=== PATIENT | male | born 1935 | race Caucasian/White ===

== ENCOUNTER 2016-12-12 10:09 | Emergency (ER) | payer OTHER ==
[~2016-12-12] VITALS: Ht 167.6 cm; Wt 69.0 kg
--- NOTE | ~2016-12-12 | EKG ---
[address] [address] ELECTROCARDIOGRAM REPORT Name: ANNIE CHAVES [id number] Admission: 12/12/16 Attend Phys: Discharge: 12/12/16 Date of : 31 Report #: [id number] THIS REPORT FOR: //name// [facility] ED Test Date: 2016-12-12 Test Time: 10:23:25 Pat Name: ANNIE CHAVES Department: Room: Gender: Home Health Outreach Coordinator: DIEUDONNE : 1935 Requested By: Gemini Lama Order Number: [id number] MD: Shimon Harris Measurements Intervals [place] Rate: 78 P: 66 NC: 148 QRS: 46 QRSD: 84 T: 58 QT: 363 QTc: 414 Interpretive Statements Sinus rhythm Normal tracing No previous ECG available for comparison Electronically Signed On 12-12-2016 13:38:57 CDT by Shimon Harris [email or web address] <ELECTRONICALLY SIGNED> By: Shimon Harris MD, [facility] 12/12/16 1338 1023 1023 Shimon Harris MD, FACC /EPI
[2016-12-12] MEDS ORDERED: ALLOPURINOL 30300 M2 PO (10:28)
[2016-12-12] MEDS ORDERED: ASPIR 8181 MG PO (10:29)
[2016-12-12] MEDS ORDERED: XANAX 0.5 MG0.5 MG PO (10:29)
[2016-12-12] MEDS ORDERED: ATENOLOL 25 MG25 M1 PO (10:30)
[2016-12-12] MEDS ORDERED: LIPITOR 20 MG T20 M1 PO (10:30)
[2016-12-12] MEDS ORDERED: LOTRISONE CREAM15 GM TOP (10:32)
[2016-12-12] MEDS ORDERED: BENTYL 10 MG CA10 M1 PO (10:33)
[2016-12-12] MEDS ORDERED: GEMFIBROZIL 60600 M1 PO (10:33)
[2016-12-12 10:34] LABS: ABSOLUTE NEUTROPHILS 13.2 thou/uL (1.4-8.2); BASOPHILS 0.2 % (0.0-2.0); EOSINOPHILS 0.2 % (0.0-3.0); HEMATOCRIT 38.7 % (42.0-52.0); HEMOGLOBIN 13.2 gm/dL (14.0-18.0); LYMPHOCYTES 6.9 % (24.0-44.0); MCH 32.1 pg (26.0-34.0); MCHC 34.1 g/dL (28.0-37.0); MCV 94.3 fL (80.0-100.0); MONOCYTES 5.4 % (1.0-8.0); PLATELET COUNT 202 thou/uL (150-400); POLYS 87.3 % (36.0-66.0); RDW 12.8 % (10.5-14.5); WBC 15.1 thou/uL (4.0-11.0)
[2016-12-12] MEDS ORDERED: GLUCOTROL5 MG PO (10:34)
[2016-12-12] MEDS ORDERED: CLARITIN10 MG PO (10:36)
[2016-12-12] MEDS ORDERED: ATROVENT HFA14 GM NASAL (10:36)
[2016-12-12] MEDS ORDERED: METFORMIN HCL500 MG PO (10:37)
[2016-12-12] MEDS ORDERED: LOPRESSOR50 PO (10:37)
[2016-12-12] MEDS ORDERED: OMEGA 3 1,0001 EACH PO (10:38)
[2016-12-12] MEDS ORDERED: OMEPRAZOLE 20 M20 M1 PO (10:38)
[2016-12-12] MEDS ORDERED: TARKA 4-240 MG1 EACH PO (10:39)
[2016-12-12] MEDS ORDERED: TRIAMCINOLONE A80 G2 TOP (10:40)
[2016-12-12 10:41] LABS: ANION GAP 11 mmol/L (7-16); BUN 13 mg/dL (7-18); CALCIUM 8.8 mg/dL (8.5-10.1); CHLORIDE 98 mmol/L (98-107); CO2 25 mmol/L (21-32); CREATININE 1.2 mg/dL (0.7-1.3); GLUCOSE 214 mg/dL (74-106); POTASSIUM 3.7 mmol/L (3.5-5.1); SODIUM 134 mmol/L (136-145)
[2016-12-12 10:48] LABS: MANUAL DIFF NO
[2016-12-12 10:50] LABS: ALBUMIN 4.2 g/dL (3.4-5.0); ALKALINE PHOSPHATASE 98 U/L (46-116); DIRECT BILIRUBIN 0.3 mg/dL (<0.1-0.3); SGOT 33 U/L (15-37); SGPT 31 U/L (30-65); TOTAL BILIRUBIN 0.7 mg/dL (<0.1-1.0); TOTAL PROTEIN 7.5 g/dL (6.4-8.2); TROPONIN-I < 0.04 ng/mL (<0.04-0.07)
[2016-12-12 11:16] LABS: URINE BILIRUBIN NEGATIVE (Negative); URINE BLOOD NEGATIVE (Negative); URINE COLOR YELLOW; URINE GLUCOSE-RANDOM* NEGATIVE (Negative); URINE KETONES NEGATIVE (Negative); URINE NITRITE NEGATIVE (Negative); URINE PROTEIN (DIPSTICK) 2+ (Negative); URINE UROBILINOGEN 0.2 E.U./dl (0.2-1.0)
[2016-12-12 12:10] LABS: BACTERIA 1-9 Few /HPF (None Seen); CRYSTALS None Seen /LPF (None Seen); HYALINE CASTS 4-10 Moderate /LPF (None Seen); SQUAMOUS 0-3 Few /LPF (0-3); URINE RBC None Seen /HPF (0-2); URINE WBC 0-5 Rare /HPF (0-5)
[2016-12-12] MEDS ORDERED: NORCO 5-325 TA1 EACH PO (12:28)
[2016-12-12] MEDS ORDERED: ZOFRAN ODT4 MG PO (12:28)
[2016-12-12 12:39] VITALS: BP 107/49
== END 2016-12-12 12:49 | disposition home or self-care (01) ==
LOC: ER 10:09
PROVIDERS: Emergency Medicine
DX: K56.69 Other intestinal obstruction (principal); D72.829 Elevated white blood cell count, unspecified; R74.0 Nonspecific elevation of levels of transaminase and lactic acid dehydrogenase [LDH]; K21.9 Gastro-esophageal reflux disease without esophagitis; Z90.49 Acquired absence of other specified parts of digestive tract; Z87.891 Personal history of nicotine dependence

== ENCOUNTER → 2017-07-05 | Outpatient (CLI) | payer OTHER ==
[~2017-07-05] VITALS: Ht 162.6 cm; Wt 68.0 kg
[~2017-07-05] MED LIST: ALLOPURINOL 30300 M2 PO; ASPIR 8181 MG PO; ATENOLOL 25 MG25 M1 PO; ATROVENT HFA14 GM NASAL; BENTYL 10 MG CA10 M1 PO; CLARITIN10 MG PO; COQ-10100 MG PO; GEMFIBROZIL 60600 M1 PO; GLUCOTROL5 MG PO; LIPITOR 20 MG T20 M1 PO; LOPRESSOR50 PO; LOTRISONE CREAM15 GM TOP; METFORMIN HCL500 MG PO; NEPHROCAPS SOFT1 CAP PO; NORCO 5-325 TA1 EACH PO; OMEGA 3 1,0001 EACH PO; OMEPRAZOLE 20 M20 M1 PO; TARKA 4-240 MG1 EACH PO; TRIAMCINOLONE A80 G2 TOP; VITAMIN D1000 UNI1 PO; XANAX 0.5 MG0.5 MG PO; ZOFRAN ODT4 MG PO
--- NOTE | ~2017-07-05 | CATHLAB ---
[facility] [place] [address] INVASIVE PROCEDURE REPORT Name: ANNIE CHAVES Room #: REG MATILDE Varner#: [id number] Admission: 07/05/17 Attend Phys: Marcelo Ewing, Discharge: Date of : 31 Date of Service: 07/15/17 0929 Report #: [id number] THIS REPORT FOR: //name// APPROVED REPORT Study performed: 07/05/2017 08:32:39 Patient Details Patient Status: Out-Patient Room #: The patient is a 81 year-old male Event Personnel Evan Mcgee RN, Jay Elias RN RN, Marcelo Ewing Survey Research Manager, Nicho Miller Partnoy, Nancy RTR, PROFESSOR OF HISTORY Monitor Procedures Performed Art Access - R femoral artery* 29378 Initial Mod Sed Same Phys/QHP Gr5y 329559 Left Heart Cath w/or w/o Coronaries 3323651 [facility] Aortogram Abdominal Peripheral Angio 321150 Hemostasis w/ Mynx Indication Positive stress test Procedure Narrative The Right Groin^ was infiltrated with 1% Lidocaine subcutaneous anesthesia. A PINNACLE 6FR Sheath #[id number] sheath was inserted into the RFA^. Coronary angiography was performed using coronary diagnostic catheters. The right coronary system was accessed and visualized with a JR4 catheter. The left coronary system was accessed and visualized with a JL4 catheter. The left ventricle was accessed and visualized with a Pigtail catheter. Left ventricular/Aortic Valve gradient assessed via catheter pullback. Left ventriculogram was performed in 30 degree projection. An aortogram of the abdominal aorta was performed. Pre-demployment femoral angiogram was performed . Closure device was deployed with a 6 Fr MYNXGRIP 6/7F #[id number]. The patient tolerated the procedure well and there were no complications associated with the procedure. There was no hematoma. Intraoperative Conscious Sedation Sedation start time: 08:59 Case end Time: 09:09 Fentanyl 50 mcg Versed 1.5 mg Fluoro Time: 1.55 minutes [facility] [address] [place] [address] INVASIVE PROCEDURE REPORT Name: ANNIE CHAVES [facility] Room #: [facility] Telly#: [id number] Admission: 07/05/17 Attend Phys: Marcelo Ewing, Discharge: Date of : 31 Date of Service: 07/15/17 0929 Report #: [id number] Dose: DAP 2061.70 cGycm2 231 mGy Contrast Type and Amount: Omnipaque 120 ml Hemodynamics The aortic pressure is 110/50 mmHg with a mean of 72 mmHg. The left ventricular pressure is 111/4 mmHg with a mean of mmHg. The left ventricular end diastolic pressure is 28 mmHg. 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 Indications plan: Continue aggressive risk factor modification no coronary intervention is indicated. We'll have abdominal ultrasound to evaluate for small aortic aneurysm. No lifting for 48 hours No line tub Jacuzzi or Ibarra for a week. Follow-up will be arranged. <ELECTRONICALLY SIGNED> By: Marcelo Ewing MD, FACC 07/15/17928 8 8 Marcelo Ewing MD, FACC /INF
--- NOTE | ~2017-07-05 | EKG ---
[place] [address] [address] [facility] [place] [address] ELECTROCARDIOGRAM REPORT Name: ROSY CHAVESPIEDAD MCLEOD Room #: REG [facility] [id number] Admission: 07/05/17 Attend Phys: Marcelo Ewing MD, Discharge: Date of : 31 Report #: [id number] THIS REPORT FOR: //name// [facility] Test Date: 2017-07-05 Test Time: 07:18:40 Pat Name: ANNIE CHAVES Department: Room: Gender: M Assistant Therapy Aide: : 1935 Requested By: Marcelo Ewing Order Number: [id number] MD: Shimon Harris Measurements Intervals [place] Rate: 70 P: 71 AR: 146 QRS: 51 QRSD: 87 T: 55 QT: 379 QTc: 409 Interpretive Statements Sinus rhythm Probable anteroseptal infarct, old Compared to ECG 12/12/2016 10:23:25 Septal Q waves are more prominent Electronically Signed On 07-05-2017 17:44:37 CDT by Shimon Harris [email or web address] <ELECTRONICALLY SIGNED> By: Shimon Harris MD, [facility] 07/05/17 1744 7 7 Shimon Harris MD, [facility] /EPI
[2017-07-05 07:05] VITALS: BP 124/60
[2017-07-05 07:48] LABS: HEMATOCRIT 32.3 % (42.0-52.0); HEMOGLOBIN 11.2 gm/dL (14.0-18.0); MCH 32.7 pg (26.0-34.0); MCHC 34.8 g/dL (28.0-37.0); RBC 3.43 mil/uL (4.50-6.00); RDW 12.8 % (10.5-14.5); WBC 4.2 thou/uL (4.0-11.0)
[2017-07-05 08:00] LABS: CALCIUM 8.8 mg/dL (8.5-10.1); POTASSIUM 3.6 mmol/L (3.5-5.1)
== END | disposition home or self-care (01) ==
LOC: CATH 06:38
PROVIDERS: Internal Medicine Cardiovascular Disease
DX: I25.10 Atherosclerotic heart disease of native coronary artery without angina pectoris (principal); I71.4 Abdominal aortic aneurysm, without rupture; I70.1 Atherosclerosis of renal artery; I10 Essential (primary) hypertension; E78.5 Hyperlipidemia, unspecified; E11.9 Type 2 diabetes mellitus without complications; K21.9 Gastro-esophageal reflux disease without esophagitis; Z90.49 Acquired absence of other specified parts of digestive tract; Z98.890 Other specified postprocedural states; Z87.891 Personal history of nicotine dependence; Z95.5 Presence of coronary angioplasty implant and graft; Z82.49 Family history of ischemic heart disease and other diseases of the circulatory system; Z79.899 Other long term (current) drug therapy; Z79.82 Long term (current) use of aspirin

== ENCOUNTER → 2019-04-16 | Outpatient (CLI) | payer OTHER ==
[~2019-04-16] MED LIST changes: +AMARYL2 M1 PO; +MONTELUKAST SODI4 M1 PO; +XARELTO20 MG PO
== END ==
LOC: SJCVCIMAG 12:47
DX: I82.431 Acute embolism and thrombosis of right popliteal vein (principal); I87.2 Venous insufficiency (chronic) (peripheral); M79.89 Other specified soft tissue disorders; M79.669 Pain in unspecified lower leg

== ENCOUNTER → 2019-05-07 | Outpatient (CLI) | payer OTHER ==
[~2019-05-07] VITALS: Ht 160 cm; Wt 68.0 kg
[2019-05-07 14:07] VITALS: BP 134/79
[2019-05-07 14:39] LABS: HEMATOCRIT 39.6 % (42.0-52.0); HEMOGLOBIN 12.9 gm/dL (14.0-18.0); MCH 31.4 pg (26.0-34.0); MCHC 32.6 g/dL (28.0-37.0); MCV 96.3 fL (80.0-100.0); RBC 4.11 mil/uL (4.50-6.00); RDW 14.2 % (10.5-14.5); WBC 4.1 thou/uL (4.0-11.0)
[2019-05-07 14:48] LABS: CALCIUM 8.5 mg/dL (8.5-10.1); POTASSIUM 3.9 mmol/L (3.5-5.1)
== END | disposition home or self-care (01) ==
LOC: CATH 13:27
PROVIDERS: Nuclear Medicine Nuclear Cardiology
DX: I87.1 Compression of vein (principal); I87.2 Venous insufficiency (chronic) (peripheral); I10 Essential (primary) hypertension; E11.9 Type 2 diabetes mellitus without complications; K21.9 Gastro-esophageal reflux disease without esophagitis; E78.5 Hyperlipidemia, unspecified; I25.10 Atherosclerotic heart disease of native coronary artery without angina pectoris; I73.9 Peripheral vascular disease, unspecified; I48.91 Unspecified atrial fibrillation; Z98.890 Other specified postprocedural states; Z79.899 Other long term (current) drug therapy; Z79.01 Long term (current) use of anticoagulants; Z87.891 Personal history of nicotine dependence; Z90.49 Acquired absence of other specified parts of digestive tract; Z88.8 Allergy status to other drugs, medicaments and biological substances

== ENCOUNTER → 2019-05-16 | Outpatient (CLI) | payer OTHER | LOC: HYPER 08:36 | DX: E11.628 Type 2 diabetes mellitus with other skin complications (principal); R60.9 Edema, unspecified; G89.29 Other chronic pain; M79.89 Other specified soft tissue disorders; H91.93 Unspecified hearing loss, bilateral; I10 Essential (primary) hypertension; I25.10 Atherosclerotic heart disease of native coronary artery without angina pectoris; E78.5 Hyperlipidemia, unspecified; F17.290 Nicotine dependence, other tobacco product, uncomplicated; Z79.84 Long term (current) use of oral hypoglycemic drugs; Z79.01 Long term (current) use of anticoagulants ==

== ENCOUNTER → 2019-05-30 | Outpatient (CLI) | payer OTHER | LOC: HYPER 13:55 | DX: R60.0 Localized edema (principal); M79.89 Other specified soft tissue disorders; E11.9 Type 2 diabetes mellitus without complications; E78.5 Hyperlipidemia, unspecified; E66.01 Morbid (severe) obesity due to excess calories; H91.93 Unspecified hearing loss, bilateral; I25.10 Atherosclerotic heart disease of native coronary artery without angina pectoris; I10 Essential (primary) hypertension; Z87.891 Personal history of nicotine dependence; Z79.84 Long term (current) use of oral hypoglycemic drugs; Z79.01 Long term (current) use of anticoagulants; Z68.25 Body mass index [BMI] 25.0-25.9, adult ==

== ENCOUNTER → 2019-09-13 | Outpatient (CLI) | payer OTHER | LOC: SJCVCIMAG 13:13 | PROVIDERS: ATTEND Internal Medicine Cardiovascular Disease | DX: I65.23 Occlusion and stenosis of bilateral carotid arteries (principal); R94.31 Abnormal electrocardiogram [ECG] [EKG]; I25.10 Atherosclerotic heart disease of native coronary artery without angina pectoris; I48.0 Paroxysmal atrial fibrillation; E11.9 Type 2 diabetes mellitus without complications; I87.2 Venous insufficiency (chronic) (peripheral); I73.9 Peripheral vascular disease, unspecified; D68.59 Other primary thrombophilia; I38 Endocarditis, valve unspecified; E78.2 Mixed hyperlipidemia; Z79.899 Other long term (current) drug therapy; Z87.891 Personal history of nicotine dependence ==

== ENCOUNTER → 2020-02-25 | Outpatient (CLI) | payer OTHER | LOC: RAD 12:57 | PROVIDERS: ATTEND Otolaryngology Plastic Surgery within the Head & Neck | DX: K21.9 Gastro-esophageal reflux disease without esophagitis (principal); R09.89 Other specified symptoms and signs involving the circulatory and respiratory systems ==

== ENCOUNTER → 2020-04-24 | Outpatient (CLI) | payer OTHER | LOC: CAT 13:58 | PROVIDERS: ATTEND Internal Medicine Pulmonary Disease | DX: J43.9 Emphysema, unspecified (principal); R91.8 Other nonspecific abnormal finding of lung field; I70.0 Atherosclerosis of aorta; I25.10 Atherosclerotic heart disease of native coronary artery without angina pectoris; J98.4 Other disorders of lung ==

== ENCOUNTER → 2020-05-07 | Outpatient (CLI) | payer OTHER | LOC: SJCVCIMAG 10:03 | PROVIDERS: ATTEND Internal Medicine Cardiovascular Disease | DX: I08.8 Other rheumatic multiple valve diseases (principal); R94.31 Abnormal electrocardiogram [ECG] [EKG]; I11.9 Hypertensive heart disease without heart failure; I25.10 Atherosclerotic heart disease of native coronary artery without angina pectoris; E11.9 Type 2 diabetes mellitus without complications; I77.9 Disorder of arteries and arterioles, unspecified; I87.2 Venous insufficiency (chronic) (peripheral); I48.0 Paroxysmal atrial fibrillation; D64.9 Anemia, unspecified; E78.2 Mixed hyperlipidemia; Z90.49 Acquired absence of other specified parts of digestive tract; Z88.8 Allergy status to other drugs, medicaments and biological substances; Z79.899 Other long term (current) drug therapy; Z86.16 Personal history of COVID-19; Z87.891 Personal history of nicotine dependence; Z82.49 Family history of ischemic heart disease and other diseases of the circulatory system ==

== ENCOUNTER → 2020-12-12 | Outpatient (CLI) | payer OTHER | LOC: SJCVCIMAG 11-12 09:09 | PROVIDERS: ATTEND Internal Medicine Cardiovascular Disease | DX: R94.31 Abnormal electrocardiogram [ECG] [EKG] (principal); I65.23 Occlusion and stenosis of bilateral carotid arteries; I25.10 Atherosclerotic heart disease of native coronary artery without angina pectoris; I48.0 Paroxysmal atrial fibrillation; I10 Essential (primary) hypertension; E78.2 Mixed hyperlipidemia; I77.9 Disorder of arteries and arterioles, unspecified; I87.2 Venous insufficiency (chronic) (peripheral); E11.9 Type 2 diabetes mellitus without complications; D64.9 Anemia, unspecified; I38 Endocarditis, valve unspecified; Z86.16 Personal history of COVID-19; Z79.4 Long term (current) use of insulin; Z79.899 Other long term (current) drug therapy; Z87.891 Personal history of nicotine dependence; Z88.1 Allergy status to other antibiotic agents; Z88.8 Allergy status to other drugs, medicaments and biological substances ==